=== PATIENT | female | born 1990 | race Native Hawaiian/Other Pacific Islander ===

== ENCOUNTER 2018-05-29 12:56 | Emergency (ER) | payer OTHER ==
[2018-05-29 13:18] VITALS: BP 100/35
[2018-05-29] MEDS ORDERED: NORCO 5/325 PO ONE (14:28)
--- NOTE | 2018-05-29 14:31 | Emergency Department Report ---
HPI - General Chief Complaint: Head Injury Time Seen by Provider: 05/29/18 14:22 - HPI HPI: 28-year-old female presents to the emergency department with complaint of a right-sided headache and some blurred vision this been going on since yesterday when she was hit in the head by a pallet of some boxes of [employer] equipment. She did not have any loss of consciousness at that time. This occurred at work and she was sent to [facility] urgent care yesterday for a Worker's Compensation follow-up appointment. [facility] then told her to go to the emergency department for a CT scan of the head. She took some ibuprofen for her symptoms prior to presentation with some slight relief. Currently the headache is 8 out of 10 in intensity. She denies any past medical history. She denies any neck pain, slurred speech, numbness or paresthesias. ED Past Medical Hx - Past Medical History Previous Medical History?: No - Surgical History Past Surgical History?: No - Social History Smoking Status: Never Smoker Substance Use Type: None ED Review of Systems ROS: Stated complaint: HEAD CT SCAN Other details as noted in HPI Comment: All other systems reviewed and negative Constitutional: denies: chills, fever Eyes: vision change (blurred vision). denies: eye pain, eye discharge ENT: denies: ear pain, throat pain Respiratory: denies: cough, shortness of breath, wheezing Cardiovascular: denies: chest pain, palpitations Gastrointestinal: denies: abdominal pain, nausea, diarrhea Genitourinary: denies: urgency, dysuria, discharge Musculoskeletal: denies: back pain, joint swelling, arthralgia Skin: denies: rash, lesions Neurological: headache. denies: numbness Physical Exam - Physical Exam Vital Signs: Vital Signs 05/29/18 13:14 Temperature 98.1 F Pulse Rate 65 Respiratory 16 Rate Blood Pressure 100/35 O2 Sat by Pulse 98 Oximetry Physical Exam: GENERAL: The patient is well-developed well-nourished. HENT: Normocephalic. Atraumatic. Patient has moist mucous membranes. EYES: Extraocular motions are intact. Pupils equal reactive to light bilaterally. No nystagmus. NECK: Supple. Trachea is midline. CHEST/LUNGS: Clear to auscultation. There is no respiratory distress noted. HEART/CARDIOVASCULAR: Regular. There is no tachycardia. There is no murmur. ABDOMEN: Abdomen is soft, nontender. Patient has normal bowel sounds. There is no abdominal distention. SKIN: Skin is warm and dry. NEURO: The patient is awake, alert, and oriented. The patient is cooperative. The patient has no focal neurologic deficits. The patient has normal speech and gait. Cranial nerves II through XII grossly intact. MUSCULOSKELETAL: There is no tenderness or deformity. There is no limitation range of motion. There is no evidence of acute injury. ED Course Vital Signs 05/29/18 13:14 Temperature 98.1 F Pulse Rate 65 Respiratory 16 Rate Blood Pressure 100/35 O2 Sat by Pulse 98 Oximetry ED Medical Decision Making - Radiology Data Radiology results: report reviewed EXAM: CT HEAD/BRAIN WO CON HISTORY: Headache, head trauma TECHNIQUE: CT examination of the head without IV contrast PRIORS: None. FINDINGS: No acute air-fluid level visualized in the included air-filled sinuses. Bone windows demonstrate no acute fracture. The brain is without mass, mass effect, hemorrhage, or acute infarct. There is no extra-axial intracranial bleed, brain bleed, or midline shift. The ventricles and sulci are age-appropriate. IMPRESSION: No acute CVA, intracranial bleed, or brain mass Transcribed By: BAL Dictated By: BLAYNE TRENT MD Electronically Authenticated By: BLAYNE TRENT MD Signed Date/Time: 05/29/18 3964 - Medical Decision Making This patient presents to get a CT scan of the head done after she had some boxes of [employer] equipment fall onto her head yesterday. She is following up after going to the Worker's Compensation urgent care. On examination she has no focal, motor or sensory deficits in her cranial nerves are intact. No signs of any obvious trauma. CT scan of the head does not show any bleed, shift, mass , ischemia or any other acute process. She was given a single Orange for her discomfort with great improvement. Vital signs stable throughout her ED course. She's been instructed to follow up with a primary care physician but also to follow up with the worker's compensation physicians and/or clinic. She will return to the ER with any worsening of her symptoms or any acute distress. - Differential Diagnosis concussion, contusion, skull fracture, brain bleed Critical Care Time: No Critical care attestation.: If time is entered above; I have spent that time in minutes in the direct care of this critically ill patient, excluding procedure time. ED Disposition Clinical Impression: Head trauma Qualifiers: Encounter type: initial encounter Qualified Code(s): S09.90XA - Unspecified injury of head, initial encounter Headache Qualifiers: Headache type: unspecified Headache chronicity pattern: unspecified pattern Intractability: not intractable Qualified Code(s): R51 - Headache Disposition: DC-01 TO HOME OR SELFCARE Is pt being admited?: No Condition: Stable Instructions: Minor Head Injury (ED), Acute Headache (ED) Additional Instructions: Please follow-up with your primary care physician and/or your Worker's Compensation physician. Return to the emergency Department with any worsening of your symptoms or any acute distress. Referrals: PRIMARY CARE, [Primary Care Provider] - 2-3 Days Time of Disposition: 16:54
--- NOTE | 2018-05-29 16:25 | Cat Scan Report ---
FINAL REPORT EXAM: CT HEAD/BRAIN WO CON HISTORY: Headache, head trauma TECHNIQUE: CT examination of the head without IV contrast PRIORS: None. FINDINGS: No acute air-fluid level visualized in the included air-filled sinuses. Bone windows demonstrate no acute fracture. The brain is without mass, mass effect, hemorrhage, or acute infarct. There is no extra-axial intracranial bleed, brain bleed, or midline shift. The ventricles and sulci are age-appropriate. IMPRESSION: No acute CVA, intracranial bleed, or brain mass
== END 2018-05-29 16:58 | disposition home or self-care (01) ==
LOC: ED 12:56
DX: S09.8XXA Other specified injuries of head, initial encounter (principal); W22.8XXA Striking against or struck by other objects, initial encounter; Y93.89 Activity, other specified; Y92.89 Other specified places as the place of occurrence of the external cause; Y99.0 Civilian activity done for income or pay
CPT/HCPCS: 70450